=== PATIENT | male | born 1960 | race African-American/Black ===

== ENCOUNTER 2022-10-06 16:58 | Emergency (ER) | payer OTHER ==
[~2022-10-06] VITALS: Ht 177.8 cm; Wt 136.0 kg
[2022-10-06 17:01] VITALS: O2SAT 100
[2022-10-06] MEDS ORDERED: SODIUM CHLORIDE 0.9% 1,000 ML IV ONE (17:30)
[2022-10-06 17:43] LABS: BASOPHILS % 0.3 % (0.0-2.0); EOSINOPHILS % 1.5 % (0.0-5.0); HEMOGLOBIN. 15.7 g/dL (14.0-18.0); LYMPHOCYTES % 39.7 % (20.0-50.0); MEAN CORPUSCULAR HEMOGLOBIN 29.2 pg (28.0-32.0); MEAN CORPUSCULAR VOLUME 87.2 fL (80.0-94.0); MEAN PLATELET VOLUME 9.2 fl (7.4-10.4); MONOCYTES % 7.1 % (2.0-8.0); NEUTROPHILS % 51.4 % (40.0-76.0); PLATELET 210 x1000/uL (130-400); RED BLOOD CELL COUNT 5.39 mill/uL (4.7-6.1); RED CELL DISTRIBUTION WIDTH 14.2 % (11.6-14.6)
[2022-10-06 17:51] LABS: CHLORIDE 107 mEq/L (98-107)
[2022-10-06 18:15] VITALS: TEMP 98.2
[2022-10-06] MEDS ORDERED: ONDANSETRON HCL 4MG TABLET PO PRN (19:00)
[2022-10-06] MEDS ORDERED: CLONIDINE 0.1MG TABLET PO PRN (19:00)
[2022-10-06 19:17] LABS: T4 FREE 1.07 ng/dL (0.76-1.46)
[2022-10-06 20:22] VITALS: BP 152/87; PULSE 71; RESP 16
== END 2022-10-06 20:27 | disposition home or self-care (01) ==
LOC: ER 17:58
DX: R42 Dizziness and giddiness (principal); R11.2 Nausea with vomiting, unspecified; I10 Essential (primary) hypertension
CPT/HCPCS: 99284; 96360; 80053; 84439; 84443; 85025; 36415; 93005; J7030